=== PATIENT | male | born 1985 | race Caucasian/White ===

== ENCOUNTER 2022-06-13 03:03 | Emergency (ER) | payer BC ==
[~2022-06-13] VITALS: Ht 182.9 cm; Wt 83.0 kg
[2022-06-13 03:43] LABS: HEMATOCRIT 42.9 % (36.7-47.1); MEAN CORPUSCULAR VOLUME 94.7 fL (73.0-96.2); PLATELET COUNT (AUTO) 205 K/uL (152-348)
[2022-06-13 03:58] LABS: CREATININE 1.3 mg/dL (0.6-1.3); POTASSIUM 3.8 mmol/L (3.5-5.1)
[2022-06-13 04:18] LABS: *BILIRUBIN,URIN NEGATIVE (NEGATIVE); *BLOOD, URINE NEGATIVE (NEGATIVE); *CLARITY,URINE CLEAR (CLEAR); *COLOR,URINE YELLOW (YELLOW); *KETONES,URINE NEGATIVE (NEGATIVE); *UROBILINOGEN,URINE 0.2 E.U./dl (NORMAL); LEUKOCYTE ESTERASE ,URINE NEGATIVE (NEGATIVE); NITRITE, URINE NEGATIVE (NEGATIVE); PH,URINE 6.5 (5.0-8.0); UGLUCOSE NEGATIVE (NEGATIVE)
--- NOTE | 2022-06-13 04:38 | NUR ---
Patient discharged to home in stable condition. Written and verbal after care instructions given. Patient verbalizes understanding of instructions. Stressed follow up or return to ER for worsening s/s.
[2022-06-13 04:42] VITALS: BP 145/77
== END 2022-06-13 04:42 | disposition home or self-care (01) ==
LOC: ER 03:10
DX: R10.31 Right lower quadrant pain (principal)
CPT/HCPCS: 36415; 85025; A4663